=== PATIENT | female | born 2000 | race Caucasian/White ===

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

== ENCOUNTER 2020-05-27 17:02 | Emergency (ER) | payer BC ==
[2020-05-27 18:45] LABS: #Basophils 0.1 thou/uL (0.0-0.2); #Eosinphils 0.1 thou/uL (0.0-0.7); #Lymphocytes 1.7 thou/uL (1.20-3.40); #Monocytes 0.6 thou/uL (0.11-0.59); #Neutrophils 4.3 thou/uL (1.40-6.50); %Basophils 0.8 % (0.0-1.0); %Eosinophils 0.9 % (0.0-10.0); %Lymphocytes 25.7 % (28.0-48.0); %Monocytes 8.2 % (0.0-4.0); %Neutrophils 64.5 % (31.0-61.0); Hemoglobin 14.1 g/dL (12.0-16.0); Mean Corpuscular HGB CONC 34.1 g/dL (32.0-36.0); Mean Corpuscular Hemoglobin 31.7 pg (25.0-35.0); Mean Corpuscular Volume 93.2 fL (78.0-98.0); Mean Platelet Volume 6.9 fL (7.4-10.4); Platelet Count 313 thou/uL (130-400); RBC Distribution Width 12.6 % (11.5-14.5); Red Blood Cell (RBC) Count 4.44 mill/uL (4.00-5.20); White Blood Cell (WBC) Count 6.7 thou/uL (4.8-10.8)
--- NOTE | 2020-05-27 18:49 | RAD ---
Exam: Chest one view HISTORY:Tachycardia. Comparison: None FINDINGS: Cardiac silhouette: Normal Aorta: Unremarkable Pulmonary vessels: Normal Costophrenic angles: Clear LUNGS: No masses or consolidation. Pneumothorax: None Osseous abnormalities: Mild rightward curvature of the thoracic spine. IMPRESSION: No acute cardiopulmonary process.
[2020-05-27 19:03] LABS: ALT (SGPT) 11 U/L (8-55); AST (SGOT) 18 U/L (5-34); Albumin 5.2 g/dL (3.5-5.0); Alkaline Phosphatase 73 U/L (40-100); Anion Gap 15 mmol/L (10-20); BUN (Urea Nitrogen) 8 mg/dL (7.0-18.7); Bilirubin, Total 0.6 mg/dL (0.2-1.2); Calc. Creatinine Clearance 0 mL/min (70-130); Calcium 10.5 mg/dL (7.8-10.44); Carbon Dioxide 26 mmol/L (22-29); Chloride 103 mmol/L (98-107); Estimated GFR-MDRD 75; Globulin 3.7 g/dL (2.4-3.5); Glucose 97 mg/dL (70-105); Potassium 3.8 mmol/L (3.5-5.1); Protein, Total 8.9 g/dL (6.0-8.3); Sodium 140 mmol/L (136-145)
== END 2020-05-27 19:30 | disposition home or self-care (01) ==
LOC: ERS 17:02
DX: R00.0 Tachycardia, unspecified (principal); R00.2 Palpitations; I49.9 Cardiac arrhythmia, unspecified; F41.9 Anxiety disorder, unspecified; F32.9 Major depressive disorder, single episode, unspecified; Z79.01 Long term (current) use of anticoagulants; Z79.899 Other long term (current) drug therapy
CPT/HCPCS: 36415; 71045; 80053; 84484; 85025; 93005; 94760